=== PATIENT | male | born 1950 | race Caucasian/White ===

== ENCOUNTER 2022-05-30 08:32 | Day surgery (SDC) | payer OTHER ==
[~2022-05-30] VITALS: Ht 171.4 cm; Wt 75.0 kg
[~2022-05-30 08:32] MED LIST: SODIUM CHLORIDE 0.9% 1,000 ML IV ONE; SODIUM CHLORIDE 0.9% 1,000 ML ONE
[2022-05-30 09:03] LABS: COVID AG,FIA SOURCE NASAL SWAB
[2022-05-30] MEDS ORDERED: PROPOFOL 1% 20 ML VIAL IVP ONE (12:00)
== END 2022-05-30 12:20 | disposition home or self-care (01) ==
LOC: SURGERY 08:32
PROVIDERS: ATTEND Internal Medicine Gastroenterology
DX: K29.70 Gastritis, unspecified, without bleeding (principal); K44.9 Diaphragmatic hernia without obstruction or gangrene; Z79.899 Other long term (current) drug therapy; Z20.822 Contact with and (suspected) exposure to COVID-19; Z98.890 Other specified postprocedural states
CPT/HCPCS: 43239; 87426; C9803; C1769; J2704; J7030